=== PATIENT | male | born 1995 | race Caucasian/White ===

== ENCOUNTER 2019-02-21 12:18 | Emergency (ER) | payer OTHER ==
[2019-02-21 13:49] LABS: TROPONIN-I < 0.012 ng/ml (0.000-0.120)
[2019-02-21 14:33] LABS: MONOTEST Negative (NEG)
== END 2019-02-21 15:33 | disposition home or self-care (01) ==
LOC: FTE 15:33
DX: J02.9 Acute pharyngitis, unspecified (principal); M25.532 Pain in left wrist; M79.641 Pain in right hand; R07.9 Chest pain, unspecified
CPT/HCPCS: 71045; 73110-LT; 73130-RT; 84484; 86308; 87070; 87880; 93005; 99285-25